=== PATIENT | male | born 1985 | race Caucasian/White ===

== ENCOUNTER 2017-10-10 07:58 | Emergency (ER) | payer BC ==
[2017-10-10] MEDS ORDERED: methylPREDNISolone Sod Succ/PF 125 MG/2 ML VIAL ONE (08:01)
[2017-10-10] MEDS ORDERED: Magnesium Sulfate 2 GM/100 ML BAG ONE (08:02)
[2017-10-10 08:37] LABS: #Eosinphils 0.2 thou/uL (0.0-0.7); #Lymphocytes 2.2 thou/uL (1.20-3.40); #Monocytes 0.6 thou/uL (0.11-0.59); #Neutrophils 3.6 thou/uL (1.40-6.50); %Basophils 0.3 % (0.0-1.0); %Eosinophils 3.3 % (0.0-10.0); %Lymphocytes 33.1 % (21.0-51.0); %Monocytes 8.4 % (0.0-10.0); %Neutrophils 54.9 % (42.0-75.0); Hemoglobin 16.1 g/dL (14.0-18.0); Mean Corpuscular HGB CONC 35.2 g/dL (32.0-36.0); Mean Corpuscular Hemoglobin 31.9 pg (27.0-31.0); Mean Corpuscular Volume 90.5 fl (80.0-94.0); Mean Platelet Volume 9.7 fL (7.4-10.4); Platelet Count 216 thou/uL (130-400); RBC Distribution Width 11.4 % (11.5-14.5); Red Blood Cell (RBC) Count 5.05 mill/uL (4.70-6.10)
[2017-10-10 08:44] LABS: Lactic Acid 1.5 mmol/L (0.5-2.2)
[2017-10-10 08:50] LABS: ALT (SGPT) 31 U/L (8-55); AST (SGOT) 29 U/L (5-34); Albumin 4.7 g/dL (3.5-5.0); Alkaline Phosphatase 29 U/L (40-150); Anion Gap 14 mmol/L (10-20); BUN (Urea Nitrogen) 16 mg/dL (8.9-20.6); Bilirubin, Total 0.9 mg/dL (0.2-1.2); Calc. Creatinine Clearance 0 mL/min (70-130); Calcium 9.3 mg/dL (7.8-10.44); Carbon Dioxide 25 mmol/L (22-29); Chloride 102 mmol/L (98-107); Estimated GFR-MDRD 83; Globulin 2.8 g/dL (2.4-3.5); Glucose 141 mg/dL (70-105); Potassium 3.8 mmol/L (3.5-5.1); Protein, Total 7.5 g/dL (6.0-8.3); Sodium 137 mmol/L (136-145)
[2017-10-10 08:53] LABS: CKMB 1.4 ng/mL (0-6.6); Troponin I Less than 0.010 ng/mL (< 0.028)
[2017-10-10] MEDS ORDERED: Famotidine/PF 20 mg/2ml Vial ONE (09:02)
== END 2017-10-10 10:05 | disposition home or self-care (01) ==
LOC: ERS 07:58
DX: L50.0 Allergic urticaria (principal)
CPT/HCPCS: 80053; 82553; 83605; 84484; 85025; 96365; 96375; J2930; J3475; S0028